=== PATIENT | male | born 1995 | race Caucasian/White ===

== ENCOUNTER 2016-12-11 15:19 | Emergency (ER) | payer BC ==
[~2016-12-11] VITALS: Ht 175.3 cm; Wt 83.9 kg
[~2016-12-11 15:19] MED LIST: ACET325T96 PO; ALBU1AER9 INH
[2016-12-11 15:23] VITALS: TEMP 36.7; Ht 175.3 cm; Wt 83.9 kg
[2016-12-11] MEDS ORDERED: IBUP-1050 PO (15:23)
[2016-12-11] MEDS ORDERED: ALBU18002 INH (15:36)
--- NOTE | 2016-12-11 16:11 | EMERGENCY ROOM VISIT NOTE ---
ED Visit Note First contact with patient: 15:30 CHIEF COMPLAINT: Right Knee injury HISTORY OF PRESENT ILLNESS: This 21-year-old male presents the ER with chief complaint of right knee injury. The patient states that he was playing football today and he thinks his patella dislocated and he fell to the ground. He states he went back into place and he has been able to ambulate without difficulty. The patient states that it hurts with complete flexion of his knee. He denies any locking or giving out of the knee since the incident occurred. The patient states he sits never happened before. REVIEW OF SYSTEMS: 6 system review was performed and was negative unless stated otherwise in history of present illness. PMH: The patient is healthy; asthma SOCIAL HISTORY: Patient is a [employer] student. The patient denies tobacco use but admits to occasional alcohol use. PHYSICAL EXAM: Vital Signs: Were reviewed Reviewed Nurse's notes. GEN.: 21-year -old white male appears in no acute distress. MENTAL STATUS: Alert, oriented, and cooperative. RIGHT KNEE: No gross bony deformity noted. No erythema or edema noted. The patient is tender to palpation over the medial joint space otherwise nontender. The patient has full range of motion of the knee with pain elicited with complete flexion. There is no ligamentous instability. The skin is normal and intact. EMERGENCY DEPARTMENT COURSE: The patient was evaluated. X-ray of the right knee was ordered and interpreted by myself without any evidence of fracture or joint effusion. This will later be interpreted by the radiologist. The patient placed in a knee immobilizer and discharged home in stable condition. DIAGNOSIS: Right Patellar dislocation DISCHARGE INSTRUCTIONS: Wear knee immobilizer until evaluated by orthopedics. Appointment with [facility] to get a referral to [employer] [facility] orthopedics. Ibuprofen 600 mg every 6 hours with food as needed for pain. Current/Historical Medications Scheduled Ibuprofen (Advil), 600 MG PO PRN Scheduled PRN Albuterol Sulfate (Proair Respiclick), 1 PUFF INH QID PRN for Shortness of Breath Allergies Coded Allergies: Azithromycin (Verified Allergy, Intermediate, RASH, 06/15/16) Penicillins (Verified Allergy, Intermediate, RASH, 06/15/16) Sulfa Antibiotics (Verified Allergy, Unknown, Unknown reaction, 06/15/16) Vital Signs Date Time Temp Pulse Resp B/P Pulse Ox O2 Delivery O2 Flow Rate FiO2 12/11/16 15:23 36.7 62 18 157/81 95 Room Air Departure Information Referrals Devendra Randhawa M.D. (PCP) Patient Instructions [facility]
[2016-12-11 16:17] VITALS: BP 124/84; PULSE 88; O2SAT 99
--- NOTE | 2016-12-11 16:31 | DIAGNOSTIC IMAGING REPORT ---
RIGHT KNEE 1 OR 2 VIEWS ROUTINE CLINICAL HISTORY: Right knee pain following injury. COMPARISON: None FINDINGS: Alignment of the right knee is anatomic. A tiny linear ossific density along the medial femoral condyle is noted. There is a suspected joint effusion. No definite fracture is present. Joint spaces are preserved. IMPRESSION: 1. No definite acute fracture. Suspected right knee joint effusion. 2. Tiny linear ossific density along the medial femoral condyle which could reflect a tiny avulsed bone fragment or artifact. Electronically signed by: Aleksandar Pleitez M.D. 12/11/2016 4:30 PM Dictated Date/Time: 12/11/2016 4:27 PM
== END 2016-12-11 16:17 | disposition home or self-care (01) ==
LOC: C.EDB 15:20 → C.EDD 16:17
DX: S83.006A Unspecified dislocation of unspecified patella, initial encounter (principal); W19.XXXA Unspecified fall, initial encounter; Y93.61 Activity, american tackle football; J45.909 Unspecified asthma, uncomplicated; Z88.0 Allergy status to penicillin; Z88.2 Allergy status to sulfonamides; Z88.3 Allergy status to other anti-infective agents